=== PATIENT | male | born 1970 | race Two or more races ===

== ENCOUNTER 2016-09-23 16:42 | Emergency (ER) | payer OTHER ==
[~2016-09-23] VITALS: Ht 180.3 cm; Wt 89.0 kg
[~2016-09-23 16:42] MED LIST: TAB-TAB PO; VITA100L SUCK-ON
[2016-09-23 16:45] VITALS: BP 131/70; PULSE 50; RESP 15; TEMP 98.3; O2SAT 99
--- NOTE | 2016-09-23 17:21 | PD ---
HPI Chief Complaint: Abdominal Pain Time Seen by Provider: 17:07 Travel History International Travel<30 days: No Contact w/Intl Traveler<30days: No Traveled to known affect area: No History of Present Illness HPI This 46-year-old male has been having left-sided abdominal pain off and on for several months. Pain is somewhat intermittent. It's a stabbing type of pain. He has a history of esophageal cancer. He had resection of the esophagus 2 years ago at [facility] in [place]. 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 He has had resection as well as radiation and chemotherapy. He he is thought to be cancer free at this time. He has been having this pain off and on for several months. He'll come on for a couple of weeks away. It is somewhat intermittent. His weight has been good. 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 He has not been losing weight. He goes for screening CAT scans every month but is not due for another month or so. He has been taking some Aleve for the pain PFSH Past Medical History Hx Anticoagulant Therapy: Yes (XERALTO) Heart Rhythm Problems: No Cancer: Yes (espohageal, liver) Cardiac Catheterization: No Cardiovascular Problems: Yes (LOW HR/LOW B/P) High Cholesterol: Yes Chemotherapy: Yes (10/08/15) Congestive Heart Failure: No Diabetes: No Diminished Hearing: No GERD: Yes Hepatitis: No Hiatal Hernia: No Hypertension: No Implanted Vascular Access Dvce: Yes (port) Psychiatric: No Respiratory: Yes Immunizations Current: Yes Thyroid Disease: No Past Surgical History Abdominal Surgery: Yes Cardiac Surgery: Yes (vena cava filter and removal) Coronary Artery Bypass Graft: No Genitourinary Surgery: Yes (testicular (undescended retrieval)) Neurologic Surgery: Yes (BACK. 02/03/12 L4 DISC) Other Surgery: Yes (LOW BACK APPROX 16 YEARS AGO ON L4-L5) Social History Alcohol Use: No Tobacco Use: No Substance Use: No Allergies-Medications (Allergen,Severity, Reaction): Coded Allergies: adhesive (Unverified Adverse Reaction, Severe, 09/23/16) gluten (Unverified Adverse Reaction, Severe, Diarrhea, 09/23/16) lactose (Unverified Adverse Reaction, Severe, Diarrhea, 09/23/16) Reported Meds & Prescriptions Reported Meds & Active Scripts Active Reported Liquid B-12 (Cyanocobalamin (Vitamin B-12)) 1,000 Mcg/15 Ml Liquid 1,000 Mcg PO DAILY Multivitamin & Mineral Liq (Multiple Vitamins W/ Minerals Liq) 1 Liq Liq 15 Ml PO DAILY Review of Systems General / Constitutional: No: Fever, Chills Eyes: No: Diploplia, Blurred Vision HENT: No: Headaches, Vertigo Cardiovascular: No: Chest Pain or Discomfort Gastrointestinal: Positive: Abdominal Pain Genitourinary: No: Urgency, Frequency Musculoskeletal: No: Myalgias Neurologic: No: Weakness, Dizziness Endocrine: No: Heat Intolerance Physical Exam Narrative GENERAL: Well-developed male SKIN: Focused skin assessment warm/dry. HEAD: Atraumatic. Normocephalic. EYES: Pupils equal and round. No scleral icterus. No injection or drainage. ENT: No nasal bleeding or discharge. Mucous membranes pink and moist. NECK: Trachea midline. No JVD. CARDIOVASCULAR: Regular rate and rhythm. No murmur appreciated. RESPIRATORY: No accessory muscle use. Clear to auscultation. Breath sounds equal bilaterally. GASTROINTESTINAL: Abdomen soft, non-tender, nondistended. Hepatic and splenic margins not palpable. Multiple scars are present. There is no focal tenderness at the site of pain and I don't feel any abnormality at the site MUSCULOSKELETAL: No obvious deformities. No clubbing. No cyanosis. No edema. NEUROLOGICAL: Awake and alert. No obvious cranial nerve deficits. Motor grossly within normal limits. Normal speech. PSYCHIATRIC: Appropriate mood and affect; insight and judgment normal. Data Data Last Documented VS Vital Signs Date Time Temp Pulse Resp B/P Pulse Ox O2 Delivery O2 Flow Rate FiO2 09/23/16 18:00 16 09/23/16 16:45 98.3 50 131/70 99 Orders Complete Blood Count With Diff (09/23/16 17:16) Comprehensive Metabolic Panel (09/23/16 17:16) Lipase (09/23/16 17:16) Ct Abd/Pel W Iv Contrast(Rout) (09/23/16 17:16) Vitamin B12 (09/23/16 17:16) Diatrizoate Liq ( Gastroview Liq) (09/23/16 17:50) Iohexol 350 Inj (Omnipaque 350 Inj) (09/23/16 19:24) Labs Laboratory Tests Test 09/23/16 17:45 White Blood Count 5.3 TH/MM3 Red Blood Count 4.25 MIL/MM3 Hemoglobin 13.3 GM/DL Hematocrit 39.2 % Mean Corpuscular Volume 92.4 FL Mean Corpuscular Hemoglobin 31.4 PG Mean Corpuscular Hemoglobin 34.0 % Concent Red Cell Distribution Width 12.7 % Platelet Count 149 TH/MM3 Mean Platelet Volume 9.3 FL Neutrophils (%) (Auto) 57.7 % Lymphocytes (%) (Auto) 28.0 % Monocytes (%) (Auto) 10.5 % Eosinophils (%) (Auto) 3.2 % Basophils (%) (Auto) 0.6 % Neutrophils # (Auto) 3.0 TH/MM3 Lymphocytes # (Auto) 1.5 TH/MM3 Monocytes # (Auto) 0.6 TH/MM3 Eosinophils # (Auto) 0.2 TH/MM3 Basophils # (Auto) 0.0 TH/MM3 CBC Comment DIFF FINAL Differential Comment Sodium Level 141 MEQ/L Potassium Level 3.8 MEQ/L Chloride Level 106 MEQ/L Carbon Dioxide Level 29.5 MEQ/L Anion Gap 6 MEQ/L Blood Urea Nitrogen 15 MG/DL Creatinine 0.98 MG/DL Estimat Glomerular Filtration 82 ML/MIN Rate Random Glucose 90 MG/DL Calcium Level 8.5 MG/DL Total Bilirubin 0.6 MG/DL Aspartate Amino Transf 26 U/L (AST/SGOT) Alanine Aminotransferase 31 U/L (ALT/SGPT) Alkaline Phosphatase 56 U/L Total Protein 6.6 GM/DL Albumin 3.5 GM/DL Lipase 489 U/L Vitamin B12 Level GREATER THAN 2000 PG/ML [facility] Medical Decision Making Medical Screen Exam Complete: Yes Emergency Medical Condition: Yes Medical Record Reviewed: Yes Differential Diagnosis Differential includes pain secondary to scar tissue, space-occupying lesion, recurrent cancer Narrative Course CT with contrast was done and there is no evidence of cancer. Etiology for the pain is not determined. Patient will be released is to follow-up with Dr. Galeana and he also has an oncologist. He has pain medication at home though he has not been using it because the pain is fairly short-lived and intermittent Diagnosis Primary Impression: Abdominal pain Qualified Code: R10.12 - Left upper quadrant pain Disposition: 01 DISCHARGE HOME Condition: Stable Tano Coello MD Sep 23, 2016 17:21
[2016-09-23] MEDS ORDERED: DIATRIZOATE MEGLUM/DIATRIZOATE SOD 9 ML CUP ONE (17:50)
[2016-09-23 17:52] LABS: BASOPHIL % 0.6 % (0.0-2.0); EOSINOPHIL # 0.2 TH/MM3 (0-0.4); EOSINOPHIL % 3.2 % (0.0-4.0); HEMATOCRIT 39.2 % (39.0-51.0); HEMO FLAGS DIFF FINAL; LYMPHOCYTE # 1.5 TH/MM3 (1.0-4.8); MEAN CELL VOLUME 92.4 FL (80.0-100.0); MEAN CORPUSCULAR HEMOGLOBIN 31.4 PG (27.0-34.0); MONO % 10.5 % (0.0-8.0); NEUT % 57.7 % (16.0-70.0); PLATELET COUNT 149 TH/MM3 (150-450); RED BLOOD COUNT 4.25 MIL/MM3 (4.50-5.90); RED CELL DISTRIBUTION WIDTH 12.7 % (11.6-17.2); WHITE BLOOD COUNT 5.3 TH/MM3 (4.0-11.0)
[2016-09-23] MEDS ORDERED: [UNRECOGNIZED DRUG - CODE] PO (17:56)
[2016-09-23] MEDS ORDERED: MULTLIQ PO (17:56)
[2016-09-23 18:05] LABS: CHLORIDE 106 MEQ/L (98-107); POTASSIUM 3.8 MEQ/L (3.5-5.1); SODIUM (NA) 141 MEQ/L (136-145)
[2016-09-23 18:09] LABS: ANION GAP 6 MEQ/L (5-15); BICARBONATE 29.5 MEQ/L (21.0-32.0); BLOOD UREA NITROGEN 15 MG/DL (7-18)
[2016-09-23 18:12] LABS: ALT (GPT) 31 U/L (12-78); AST (GOT) 26 U/L (15-37); GLOMERULAR FILTRATION RATE 82 ML/MIN (>89)
[2016-09-23 18:13] LABS: TOTAL BILIRUBIN ADULT 0.6 MG/DL (0.2-1.0)
[2016-09-23 18:14] LABS: ALKALINE PHOSPHATASE 56 U/L (45-117)
[2016-09-23] MEDS ORDERED: IOHEXOL 350 MG/ML 10 ML VIAL (for RAD DIAG) IV ONE (19:24)
[2016-09-23 19:30] VITALS: BP 154/62; PULSE 62; RESP 16; O2SAT 99
--- NOTE | 2016-09-23 19:52 | RADRPT ---
EXAM DATE/TIME: 09/23/2016 19:14 [facility] COMPARISON: CT ABDOMEN & PELVIS W CONTRAST, October 14, 2015, 18:56. INDICATIONS : Abdominal pain IV CONTRAST: 95 cc Omnipaque 350 (iohexol) IV ORAL CONTRAST: Partial prescribed oral contrast ingested. RADIATION DOSE: 13.20 CTDIvol (mGy) MEDICAL HISTORY : Carcinoma, esophageal. Carcinoma, hepatocellular. Gastroesophageal reflux disease. SURGICAL HISTORY : Discectomy, lumbar. Liver resection ENCOUNTER: Initial ACUITY: 3 months PAIN SCALE: 8/10 LOCATION: Left middle TECHNIQUE: Volumetric scanning of the abdomen and pelvis was performed. Using automated exposure control and ad justment of the mA and/or kV according to patient size, radiation dose was kept as low as reasonably achievable to obtain optimal diagnostic quality images. DICOM format image data is available electro nically for review and comparison. FINDINGS: Surgical changes of the liver and distal esophagus again noted. No focal hepatic lesion. The serosal or subcapsular cystic space of the upper spleen measuring approximately 18 mm in size is stable. Panc reas, adrenal glands and kidneys are all within normal limits. No obstruction or acute inflammatory changes are seen of the gastrointestinal tract. There are scatte red diverticula of the sigmoid colon. No free fluid. No lytic or sclerotic lesion or other acute abnormality seen of the visualized osseous structures. Lo wer lumbar predominant degenerative changes are noted of the spine. Visualized lung bases are clear. Filter previously seen in the infrarenal portion of the IVC has been removed. There is heterogeneous contrast within the IVC that appears to be on the basis of phase of enhancement. I don't clearly see a thrombus. CONCLUSION: No acute abnormality demonstrated. Surgical/treatment changes as above are stable. Jackson Wiggins MD on September 23, 2016 at 19:45 Board Certified Radiologist. This report was verified electronically.
[2016-09-23 20:44] VITALS: BP 132/80
== END 2016-09-23 20:46 | disposition home or self-care (01) ==
LOC: PHED 16:42
DX: R10.12 Left upper quadrant pain (principal); E78.00 Pure hypercholesterolemia, unspecified; Z79.01 Long term (current) use of anticoagulants; Z85.01 Personal history of malignant neoplasm of esophagus; Z85.05 Personal history of malignant neoplasm of liver; Z86.79 Personal history of other diseases of the circulatory system; Z87.19 Personal history of other diseases of the digestive system
CPT/HCPCS: 74177; 80053; 82607; 83690; 85025; 99285; J1642; Q9963; Q9967